=== PATIENT | female | born 1965 | race Caucasian/White ===

== ENCOUNTER → 2017-08-26 14:16 | Outpatient (CLI) | payer OTHER | END | disposition home or self-care (01) | LOC: D.MAMMO 10:15 | DX: Z12.31 Encounter for screening mammogram for malignant neoplasm of breast (principal) ==

== ENCOUNTER → 2017-10-17 08:29 | Outpatient (CLI) | payer MEDICAID | END | disposition home or self-care (01) | LOC: D.US 08:29 | DX: R10.13 Epigastric pain (principal) ==

== ENCOUNTER → 2018-01-16 08:20 | Outpatient (CLI) | payer MEDICAID | END | disposition home or self-care (01) | LOC: D.US 08:20 | DX: R93.8 Abnormal findings on diagnostic imaging of other specified body structures (principal); K76.9 Liver disease, unspecified ==

== ENCOUNTER 2018-11-14 09:00 | Outpatient (CLI) | payer MEDICAID | END 2018-11-14 10:00 | disposition home or self-care (01) | LOC: D.MAMMO 09:00 | PROVIDERS: ATTEND Emergency Medicine | DX: Z12.31 Encounter for screening mammogram for malignant neoplasm of breast (principal) ==